=== PATIENT | male | born 1945 | race Caucasian/White ===

== ENCOUNTER 2017-04-14 21:52 | Emergency (ER) | payer MEDICARE, BC ==
[2017-04-14] MEDS ORDERED: cefTRIAXone 1,000 MG VIAL IM ONE (22:12)
--- NOTE | 2017-04-14 22:21 | EDM.PDOC ---
ED HPI GENERAL MEDICAL PROBLEM - General Chief Complaint: Skin Complaint Stated Complaint: RED LINE ON RT ARM Time Seen by Provider: 04/14/17 22:00 Source of Information: Reports: Patient, Family History Limitations: Reports: No Limitations - History of Present Illness INITIAL COMMENTS - FREE TEXT/NARRATIVE: Yosvany is leaving on vacation tomorrow, and noticed a red streak moving from the R proximal forearm to the axilla this pm, significance unknown. There is no known exposure, chronic skin disorder, or impaired immunologic status. He does have an old dog bite of the LL leg that is well crusted over and nontender. He has taken no meds. - Related Data Home Meds: Home Meds Cephalexin [Keflex] 500 mg PO Q6HR #30 cap 04/14/17 [Rx] ED ROS GENERAL - Review of Systems Review Of Systems: ROS reveals no pertinent complaints other than HPI. ED EXAM, GENERAL - Physical Exam Exam: See Below Exam Limited By: No Limitations General Appearance: Alert, WD/WN, No Apparent Distress Head: Normocephalic Neck: Normal Inspection, Supple, Non-Tender, Full Range of Motion Respiratory/Chest: Lungs Clear, Normal Breath Sounds Cardiovascular: Regular Rate, Rhythm, No Murmur GI/Abdominal: Normal Bowel Sounds, Soft, Non-Tender, No Organomegaly, No Mass (Male) Exam: Normal Inspection Back Exam: Normal Inspection Extremities: Normal Range of Motion, Redness (extending from R proximal forearm to the R axilla) Neurological: Alert, Oriented, CN II-XII Intact, Normal Cognition, No Motor/ Sensory Deficits Psychiatric: Normal Affect, Normal Mood Skin Exam: Warm, Dry, Erythema, Lymphangitis (RUE) Lymphatic: No Adenopathy Course - Vital Signs Text/Narrative:: Findings consistent with an acute lymphangitis of the RUE. I administered Rocephin 1 gm IM prior to discharge. - Orders/Labs/Meds Meds: Medications Discontinued Medications Generic Name Dose Route Start Last Admin Trade Name Juan Luis PRN Reason Stop Dose Admin Ceftriaxone Sodium 1,000 mg 04/14/17 22:12 Rocephin IM 04/14/17 22:13 ONETIME ONE Departure - Departure Time of Disposition: 22:30 Disposition: Home, Self-Care 01 Condition: fair Clinical Impression: Acute lymphangitis of right upper limb - Discharge Information Prescriptions: Cephalexin [Keflex] 500 mg PO Q6HR #30 cap - Problem List & Annotations (1) Acute lymphangitis of right upper limb SNOMED Code(s): 2048113 Code(s): L03.123 - ACUTE LYMPHANGITIS OF RIGHT UPPER LIMB Status: Acute Current Visit: Yes Annotation/Comment:: I dispensed Keflex 500 mg qid for a week beginning tomorrow. He will monitor clinical status while on vacation. - Problem List Review Problem List Initiated/Reviewed/Updated: Yes - Assessment/Plan Plan: Follow up with PCP if needed.
[2017-04-14 22:43] VITALS: BP 157/91
== END 2017-04-14 22:45 | disposition home or self-care (01) ==
LOC: FB.ED 21:52
DX: L03.123 Acute lymphangitis of right upper limb (principal)
CPT/HCPCS: 96372; 99283; J0696

== ENCOUNTER 2020-01-26 07:29 | Day surgery (SDC) | payer BC, MEDICARE ==
[~2020-01-26 07:29] MED LIST: Sodium Chloride 0.9% 10 ML Syringe FLUSH PRN
[2020-01-26] MEDS ORDERED: Propofol 200 MG/20 ML SDV IV ONE (07:30)
[2020-01-26] MEDS ORDERED: Lidocaine 1% PF 2 ML SDV INJECT ONE (07:30)
[2020-01-26] MEDS: Lactated Ringers 1,000 ML IV SCH (08:05)
--- NOTE | 2020-01-26 10:14 | PCM.OPNOTE ---
- General Post-Op/Procedure Note Date of Surgery/Procedure: 01/26/20 Operative Procedure(s): c scope with cold forcep biopsy Findings: polyps cecum x2 rectum x1 Pre Op Diagnosis: + Cologuard Post-Op Diagnosis: cecum x2. rectum x1. polyps Anesthesia Technique: MAC Primary Surgeon: Yuri Redmond Anesthesia Provider: Diana Ratliff Pathology: colon polyps cecum x2 rectum x1 Condition: Good Free Text/Narrative:: see dictation
[2020-01-26 10:47] VITALS: BP 154/108; PULSE 62
--- NOTE | 2020-01-26 15:11 | OR ---
DATE OF OPERATION: 01/26/2020 SURGEON: Yuri Redmond MD PROCEDURE PERFORMED: Colonoscopy with cold forceps biopsy. PREOPERATIVE DIAGNOSIS: Positive Cologuard test. POSTOPERATIVE DIAGNOSIS: Ascending colon polyps x2 and a rectal polyp x1. INDICATIONS FOR PROCEDURE: This is a 74-year-old white male, who recently underwent a Cologuard test. This was positive. He was offered and accepted followup colonoscopy. DESCRIPTION OF OPERATION: After an excellent IV sedation was administered, digital rectal exam was performed. No marked abnormality was noted. Flexible colonoscope was inserted and advanced to cecum. Prep was excellent. Following findings were noted. In the area of the cecum, 2 polypoid lesions, 1 approximately 4 mm and 1 approximately 2 mm in size, biopsied with cold biopsy forceps and submitted for permanent section. Transverse colon, unremarkable. Descending colon, unremarkable. Sigmoid, unremarkable. Rectum, at the proximal rectum, a small polyp was there and this was biopsied as well and removed. The patient tolerated the procedure well. Results will be sent by letter. /[id number] /MODL
== END 2020-01-26 11:00 | disposition home or self-care (01) ==
LOC: FB.SDS 07:29
PROVIDERS: ATTEND Surgery
DX: D12.8 Benign neoplasm of rectum (principal); G47.33 Obstructive sleep apnea (adult) (pediatric); Z86.010 Personal history of colon polyps; Z98.890 Other specified postprocedural states
CPT/HCPCS: 00811-QZ; 88305; J2001; J2704; J7120

== ENCOUNTER 2022-09-23 07:00 | Day surgery (SDC) | payer MEDICARE ==
[~2022-09-23 07:00] MED LIST changes: +Lactated Ringers 1,000 ML IV SCH
[2022-09-23] MEDS ORDERED: Glycopyrrolate 0.2 MG/ML 5 ML MDV IV ONE (07:01)
[2022-09-23] MEDS ORDERED: Propofol 200 MG/20 ML SDV IV ONE (07:01)
[2022-09-23 07:47] VITALS: BP 136/78; PULSE 64
== END 2022-09-23 09:59 | disposition home or self-care (01) ==
LOC: FB.SDS 07:00
PROVIDERS: ATTEND Surgery
DX: K57.30 Diverticulosis of large intestine without perforation or abscess without bleeding (principal); D12.0 Benign neoplasm of cecum; Z86.010 Personal history of colon polyps; Z79.899 Other long term (current) drug therapy; Z87.891 Personal history of nicotine dependence
CPT/HCPCS: 00812-QZ; 88305; J2704; J3490; J7120